=== PATIENT | female | born 1995 ===

== ENCOUNTER 2017-06-21 01:23 | Emergency (ER) | payer MEDICAID ==
[2017-06-21 01:28] VITALS: BMI 31.7
[2017-06-21 01:29] VITALS: BP 146/59; PULSE 67; TEMP 98; O2SAT 99
[2017-06-21 01:48] VITALS: RESP 16
--- NOTE | 2017-06-21 03:38 | ED PDOC ---
HPI: Abdomen Time Seen by Provider: 06/21/17 01:50 Chief Complaint (Nursing): Abdominal Pain Chief Complaint (Provider): Abdominal pain History Per: Patient History/Exam Limitations: no limitations Onset/Duration Of Symptoms: Days (x3) Current Symptoms Are (Timing): Still Present Location Of Pain/Discomfort: Other (lower abdominal) Quality Of Discomfort: "Pain" Associated Symptoms: Nausea, Vomiting (non bloody, non bilious). denies: Urinary Symptoms, Other (vaginal bleeding) Additional Complaint(s): Stacey Medel is a 21 year old female, with no past medical history, who presents to the emergency department complaining of lower abdominal pain associated with nausea and vomiting onset for x3 days. Patient is but is unsure how far along. She reports non bloody, non bilious vomit and normal stools. She denies any vaginal bleeding or urinary symptoms. No further medical complaints. PMD: Dave Rod Abnormal Vaginal Bleeding: No Past Medical History Reviewed: Historical Data, Nursing Documentation, Vital Signs Vital Signs: Last Vital Signs Temp 98.0 F 06/21/17 01:45 Pulse 67 06/21/17 01:45 Resp 16 06/21/17 01:45 BP 146/59 L 06/21/17 01:45 Pulse Ox 99 06/21/17 03:41 - Medical History PMH: No Chronic Diseases - Surgical History Surgical History: No Surg Hx - Family History Family History: States: Unknown Family Hx - Immunization History Hx Influenza Vaccination: No Hx Pneumococcal Vaccination: No - Home Medications Home Medications: Ambulatory Orders Medication Instructions Recorded Albuterol HFA [Ventolin HFA 90 2 puff IH [id number] #1 puff 03/16/17 mcg/actuation (8 g)] Guaifen/Dextromethorphan/PE 1 each PO Q6 #20 tablet 03/16/17 [Mucinex Fast-Max Congest-Cough] Levothyroxine [Synthroid] 50 mcg PO DAILY 03/16/17 predniSONE [Prednisone] 40 mg PO DAILY #8 tab 03/16/17 Doxylamine/Pyridoxine HCl (B6) 1 each PO DAILY #20 tablet. 06/21/17 [David Roland 10-10 mg Tablet] Multivit/Folic Acid/I 1 tab PO DAILY #30 tab 06/21/17 [ Plus] - Allergies Allergies/Adverse Reactions: Allergies Allergy/AdvReac Type Severity Reaction Status Date / Time No Known Allergies Allergy Verified 03/16/17 03:52 Review of Systems ROS Statement: Except As Marked, All Systems Reviewed And Found Negative Gastrointestinal: Positive for: Nausea, Vomiting (non bloody, non bilious), Abdominal Pain (lower) Genitourinary Female: Negative for: Dysuria, Vaginal Bleeding Physical Exam - Reviewed Nursing Documentation Reviewed: Yes Vital Signs Reviewed: Yes - Physical Exam Appears: Positive for: Well, Non-toxic, No Acute Distress Head Exam: Positive for: ATRAUMATIC, NORMAL INSPECTION, NORMOCEPHALIC Skin: Positive for: Normal Color, Warm, Dry Eye Exam: Positive for: Normal appearance Neck: Positive for: Normal, Painless ROM, Supple Cardiovascular/Chest: Positive for: Regular Rate, Rhythm. Negative for: Murmur Respiratory: Positive for: Normal Breath Sounds. Negative for: Accessory Muscle Use, Respiratory Distress Gastrointestinal/Abdominal: Positive for: Normal Exam, Soft. Negative for: Tenderness Back: Positive for: Normal Inspection. Negative for: L CVA Tenderness, R CVA Tenderness Extremity: Positive for: Normal ROM. Negative for: Deformity, Swelling Neurologic/Psych: Positive for: Alert, Oriented - ECG O2 Sat by Pulse Oximetry: 99 (RA) Pulse Ox Interpretation: Normal Medical Decision Making Medical Decision Making: Initial Impression: hyperemesis and round ligament pain Initial Plan: --Beta-HCG, Quantitative --Urine --Urine dipstick --Zofran Inj 4 mg PO --Urinalysis --OB transvaginal [US] --reevaluation 04:17 Transvaginal US FINDINGS: Gestation: Single live intrauterine gestation. heart rate of 118 beats per minute. [place]-rump length of 0.43 cm, correlating with gestational age of 6 weeks 1 day. Uterus/cervix: No subchorionic hemorrhage. No cervical dilatation or effacement. Nabothian cyst. Ovaries: RIGHT ovary: 1.4 x 1.7 x 1.2 cm simple cyst. 2.6 x 2.9 x 2.3 cm heterogeneous but predominantly hyperechoic lesion. LEFT ovary: Probable 1.6 x 1.9 x 1.4 cm complex corpus luteal cyst. No adnexal masses. Free fluid: No significant free fluid. IMPRESSION: 1. Single live intrauterine gestation. 2. Complex RIGHT ovarian lesion, nonspecific. Followup is recommended. 3. Incidental/non-acute findings are described above. 04:30 --Patient feels better. Upon provider evaluation patient is medically stable, and requires no further treatment in the ED at this time. Patient will be discharged home. Counseling was provided and all questions were answered regarding diagnosis and need for follow up with outpatient clinic. There is agreement to discharge plan. Return if symptoms persist or worsen. Scribe Attestation: Documented by Jamie Goss, acting as a scribe for Jacob Asher MD Provider Scribe Attestation: All medical record entries made by the Scribe were at my direction and personally dictated by me. I have reviewed the chart and agree that the record accurately reflects my personal performance of the history, physical exam, medical decision making, and the department course for this patient. I have also personally directed, reviewed, and agree with the discharge instructions and disposition. Disposition - Clinical Impression Clinical Impression: Abdominal pain in - Disposition [facility] Dave Rod MD [Family Provider] - Disposition Time: 04:30 Condition: STABLE Prescriptions: Doxylamine/Pyridoxine HCl (B6) [David Roland 10-10 mg Tablet] 1 each PO DAILY # 20 tablet. Multivit/Folic Acid/I [ Plus] 1 tab PO DAILY #30 tab Instructions: Abdominal Pain in (ED) Forms: [employer] ([place])
[2017-06-21 04:09] LABS: SQUAMOUS EPITHIAL 46 /hpf (0-5); URINE AMORPHOUS SEDIMENT FEW /ul (<OCC); URINE BILIRUBIN NEGATIVE (NEGATIVE); URINE BLOOD NEGATIVE (NEGATIVE); URINE CLARITY TURBID (Clear); URINE COLOR AMBER (YELLOW); URINE GLUCOSE (UA) NEG (Normal); URINE LEUKOCYTE ESTERASE LARGE Leu/uL (Negative); URINE NITRATE NEGATIVE (NEGATIVE); URINE PROTEIN 30 mg/dL (NEGATIVE); URINE UROBILINOGEN 0.2-1.0 mg/dL (0.2-1.0)
[2017-06-21 04:15] LABS: URINE BACTERIA FEW (<OCC); WBC CLUMPS MANY /hpf
--- NOTE | 2017-06-21 04:17 | US ---
EXAM: US , Transvaginal CLINICAL HISTORY: 21 years old, female; Pain; complicated by abdominal or pelvic pain; Lower; First trimester; Gestational age or lmp: 04/28/2017; ; Additional info: Early preg, lower abd pain TECHNIQUE: Real-time transvaginal obstetrical ultrasound of the maternal pelvis and a first trimester with image documentation. Transvaginal imaging was used for better evaluation of the fetus and adnexa. COMPARISON: No relevant prior studies available. FINDINGS: Gestation: Single live intrauterine gestation. heart rate of 118 beats per minute. [place]-rump length of 0.43 cm, correlating with gestational age of 6 weeks 1 day. Uterus/cervix: No subchorionic hemorrhage. No cervical dilatation or effacement. Nabothian cyst. Ovaries: RIGHT ovary: 1.4 x 1.7 x 1.2 cm simple cyst. 2.6 x 2.9 x 2.3 cm heterogeneous but predominantly hyperechoic lesion. LEFT ovary: Probable 1.6 x 1.9 x 1.4 cm complex corpus luteal cyst. No adnexal masses. Free fluid: No significant free fluid. IMPRESSION: 1. Single live intrauterine gestation. 2. Complex RIGHT ovarian lesion, nonspecific. Followup is recommended. 3. Incidental/non-acute findings are described above.
== END 2017-06-21 04:26 | disposition home or self-care (01) ==
LOC: H.ER 01:23
DX: O26.899 Other specified pregnancy related conditions, unspecified trimester (principal); N83.291 Other ovarian cyst, right side

== ENCOUNTER 2018-06-16 00:27 | Inpatient (IN) | payer MEDICAID ==
[2018-06-16 00:27] VITALS: BMI 31.7
[2018-06-16] MEDS ORDERED: Sodium Chloride 0.9% 1,000 ML IV SCH ×2 (02:15→07:15)
[2018-06-16 02:45] LABS: BASO # 0.1 K/uL (0.0-0.2); BASO % 0.4 % (0.0-2.0); EOS # 0.4 K/uL (0.0-0.7); EOS % 1.6 % (0.0-4.0); HEMOGLOBIN 14.5 g/dL (12.0-16.0); LYMPH # 2.1 K/uL (1.0-4.3); LYMPH % 7.9 % (20.0-40.0); MEAN CELL VOLUME 82.9 fl (81.0-99.0); MEAN CORPUSCULAR HEMOGLOBIN 26.2 pg (27.0-31.0); MEAN CORPUSCULAR HGB CONC 31.5 g/dL (33.0-37.0); MEAN PLATELET VOLUME 9.4 fl (7.2-11.7); MONO # 1.7 K/uL (0.0-0.8); MONO % 6.4 % (0.0-10.0); NEUT # 22.2 K/uL (1.8-7.0); NEUT % 83.7 % (50.0-75.0); NRBC % 0.2 % (0.0-0.0); PLATELET COUNT 353 K/uL (130-400); RBC 5.56 Mil/uL (3.80-5.20); RED CELL DISTRIBUTION WIDTH 14.2 % (11.5-14.5); WHITE BLOOD COUNT 26.5 K/uL (4.8-10.8)
--- NOTE | 2018-06-16 02:51 | ED PDOC ---
HPI: Abdomen Time Seen by Provider: 06/16/18 02:01 Chief Complaint (Nursing): GI Problem Chief Complaint (Provider): N/V and diarrhea History Per: Patient Associated Symptoms: Nausea, Vomiting, Diarrhea, Loss Of Appetite. denies: Fever Additional Complaint(s): 22 y/o F with no significant PMH who presents with N/V and diarrhea since 10pm tonight. Pt states that she had slightly decreased appetite today and then began vomiting suddenly at about 10pm. She then began having diarrhea. She has had several bouts and has been unable to drink anything due to vomiting. She c/o diffuse abdominal pain. Mild cough, no sputum. Denies fever, chills, night sweats, dizziness, chest pain or SOB. NO sick contacts. No recent travel outside of the country. Past Medical History Reviewed: Historical Data, Nursing Documentation, Vital Signs Vital Signs: Last Vital Signs Temp 97.5 F L 06/16/18 00:33 Pulse 93 H 06/16/18 00:33 Resp 16 06/16/18 00:33 BP 147/87 06/16/18 00:33 Pulse Ox 100 06/16/18 00:33 - Medical History PMH: No Chronic Diseases - Family History Family History: States: Unknown Family Hx - Immunization History Hx Influenza Vaccination: No Hx Pneumococcal Vaccination: No - Home Medications Home Medications: Ambulatory Orders Medication Instructions Recorded Albuterol HFA [Ventolin HFA 90 2 puff IH [id number] #1 puff 03/16/17 mcg/actuation (8 g)] Guaifen/Dextromethorphan/PE 1 each PO Q6 #20 tablet 03/16/17 [Mucinex Fast-Max Congest-Cough] Levothyroxine [Synthroid] 50 mcg PO DAILY 03/16/17 predniSONE [Prednisone] 40 mg PO DAILY #8 tab 03/16/17 Doxylamine/Pyridoxine HCl (B6) 1 each PO DAILY #20 tablet. 06/21/17 [David Roland 10-10 mg Tablet] Multivit/Folic Acid/I 1 tab PO DAILY #30 tab 06/21/17 [ Plus] - Allergies Allergies/Adverse Reactions: Allergies Allergy/AdvReac Type Severity Reaction Status Date / Time No Known Allergies Allergy Verified 03/16/17 03:52 Review of Systems Constitutional: Negative for: Fever, Sweats Respiratory: Negative for: Cough, Shortness of Breath Gastrointestinal: Positive for: Nausea, Vomiting, Abdominal Pain, Diarrhea Genitourinary Female: Negative for: Dysuria Physical Exam - Reviewed Nursing Documentation Reviewed: Yes Vital Signs Reviewed: Yes - Physical Exam Appears: Positive for: Uncomfortable (+ rigors) Head Exam: Positive for: ATRAUMATIC Skin: Positive for: Normal Color Eye Exam: Positive for: Normal appearance ENT: Positive for: Normal ENT Inspection Neck: Positive for: Normal Cardiovascular/Chest: Positive for: Regular Rate, Rhythm Respiratory: Positive for: Normal Breath Sounds Gastrointestinal/Abdominal: Positive for: Normal Exam Back: Positive for: Normal Inspection Lymphatic: Positive for: Normal Exam Neurologic/Psych: Positive for: Alert, Oriented - Laboratory Results Result Diagrams: 06/16/18 02:40 06/16/18 02:40 - ECG O2 Sat by Pulse Oximetry: 100 Medical Decision Making Medical Decision Making: CBC, CMP NS 1L IV Zofran 4mg IV x 1 4:30am: WBC 26K, 11 Bands, K = 3.3. Potassium 20meq PO x 1 given. VBG lactate, CT abd/pelvis w/ PO and IV contrast ordered, U/A and urine culture, blood cultures ordered. Lactate 2.6. Vanc/Zosyn ordered. Awaiting CT scan results and admission for sepsis. Patient endorsed to Dr. Varghese at 7:15am pending CT scan results and admission. Repeat lactate to be drawn at 9:30am. Disposition - Clinical Impression Clinical Impression: Sepsis - Patient ED Disposition Is Patient to be Admitted: Transfer of Care Counseled Patient/Family Regarding: Studies Performed, Diagnosis, Need For Followup - Disposition Disposition: Transfer of Care Disposition Time: 07:15 Condition: GUARDED Forms: [employer] ([place])
[2018-06-16 02:56] LABS: ALB/GLOB RATIO 1.3 (1.0-2.1); ALBUMIN 5.5 g/dL (3.5-5.0); ALT/SGPT 15 U/L (9-52); AST/SGOT 24 U/L (14-36); BLOOD UREA NITROGEN 22 mg/dl (7-17); CALCIUM 11.1 mg/dL (8.4-10.2); GFR NON-AFRICAN AMERICAN > 60
[2018-06-16 03:43] LABS: EOSINOPHIL 1 % (0-7); METAMYELOCYTE 1 % (0-0); NEUTROPHIL 75 % (42-75); TOTAL CELLS COUNTED 100
[2018-06-16 03:44] LABS: LYMPHOCYTE 9 % (20-50); MONOCYTE 3 % (0-10); PLATELET ESTIMATE NORMAL (NORMAL)
[2018-06-16 03:45] LABS: BANDS 11 % (0-2)
[2018-06-16] MEDS ORDERED: Potassium Chloride 20 mEq ER Tab PO ONE ×2 (04:44→05:43)
[2018-06-16] MEDS ORDERED: Iohexol 240 (50 ml) PO STA (04:46)
[2018-06-16] MEDS ORDERED: Potassium CL 10 MEQ/50 ML 50 ML IVPB SCH (05:00)
[2018-06-16] MEDS ORDERED: Iohexol 240 (50 ml) ONE (05:43)
[2018-06-16 06:08] LABS: SQUAMOUS EPITHIAL 5 /hpf (0-5); URINE BACTERIA OCC (<OCC); URINE BILIRUBIN NEGATIVE (NEGATIVE); URINE BLOOD NEGATIVE (NEGATIVE); URINE CLARITY CLOUDY (Clear); URINE COLOR YELLOW (YELLOW); URINE GLUCOSE (UA) NEG (NEGATIVE); URINE LEUKOCYTE ESTERASE SMALL Leu/uL (Negative); URINE PROTEIN 30 mg/dL (NEGATIVE); URINE UROBILINOGEN 0.2-1.0 mg/dL (0.2-1.0)
[2018-06-16 06:37] LABS: VENOUS BLOOD GAS BASE EXCESS -1.7 mmol/L (0.0-2.0); VENOUS BLOOD GAS PCO2 38 mmHg (40-60); VENOUS BLOOD GAS PO2 56 mm/Hg (30-55); VENOUS BLOOD PH 7.39 (7.32-7.43)
[2018-06-16] MEDS ORDERED: Iohexol 300 100 ML IJ ONE (07:19)
[2018-06-16] MEDS ORDERED: Piperacillin/Tazobact 4.5 GM in Sodium Chloride 0.9% 100 ML IVPB STA (07:22)
[2018-06-16] MEDS ORDERED: Vancomycin 1 g Inj ONE (07:49)
--- NOTE | 2018-06-16 10:07 | RAD ---
Date of service: 06/16/2018 HISTORY: sepsis COMPARISON: No prior. TECHNIQUE: Chest PA and lateral FINDINGS: LUNGS: No active pulmonary disease. PLEURA: No significant pleural effusion identified. No pneumothorax apparent. CARDIOVASCULAR: No aortic atherosclerotic calcification present. Normal cardiac size. No pulmonary vascular congestion. OSSEOUS STRUCTURES: No significant abnormalities. VISUALIZED UPPER ABDOMEN: Normal. OTHER FINDINGS: None. IMPRESSION: No active disease.
--- NOTE | 2018-06-16 11:12 | CT ---
Date of service: 06/16/2018 PROCEDURE: CT Abdomen and Pelvis with contrast HISTORY: n/v, diarrhea, elevated white count COMPARISON: None. TECHNIQUE: Contrast dose: 95 mL Omnipaque 300 Radiation dose: Total exam DLP = 566.12 mGy-cm. This CT exam was performed using one or more of the following dose reduction techniques: Automated exposure control, adjustment of the mA and/or kV according to patient size, and/or use of iterative reconstruction technique. FINDINGS: LOWER THORAX: Unremarkable. LIVER: Unremarkable. No gross lesion or ductal dilatation. GALLBLADDER AND BILE DUCTS: Unremarkable. PANCREAS: Unremarkable. No gross lesion or ductal dilatation. SPLEEN: Unremarkable. ADRENALS: Unremarkable. No mass. KIDNEYS AND URETERS: Unremarkable. No hydronephrosis. No solid mass. VASCULATURE: Unremarkable. No aortic aneurysm. No aortic atherosclerotic calcification or mural plaque present. BOWEL: Little oral contrast is in the colon. There is a large amount of fluid in the colon. The does not appear particularly distended. There is no marked mural enhancement throughout the colon appreciate on this exam There is more even oral contrast administration throughout the nondistended small bowel.. No small-bowel obstruction. No gross smaller large mural thickening. APPENDIX: What appears to be the appendix appears top-normal in caliber. Correlation here is needed. PERITONEUM: . No free fluid. No free air. LYMPH NODES: Unremarkable. No enlarged lymph nodes. BLADDER: Moderately distended and otherwise unremarkable. REPRODUCTIVE: The endometrial cavity is a prominent this could be physiologic. This also coalescent hyperdensity perhaps relating to coalescent tiny nabothian cysts and/or a cervicitis. A 2.3 cm fatty density within the right adnexa compatible with a dermoid is noted. Each adnexa shows additional areas of relative hypodensity this is nonspecific and may relate to ovarian follicular or other cystic changes. No thick-walled enhancing abscesses are seen. However micro abscesses are not excluded based on this appearance and clinical correlation and follow-up is needed. BONES: No acute fracture. OTHER FINDINGS: Although the stomach wall show some areas of mural thickening-the stomach is not particularly distended to optimally assess this appearance findings are nonspecific. IMPRESSION: Findings compatible with a right ovarian dermoid. Additional bilateral ovarian follicular cysts are 1 consideration. Given the concern for infection, concomitant small bilateral ovarian axes cannot be entirely excluded this is not from an imaging point of view strongly suggested. No thick adnexal enhancement suggested. Consider pelvic ultrasound to follow-up. Coalescing nabothian cysts at and/or cervicitis. No small or large bowel obstruction. There is moderate amount of fluid in the and throughout the colon and be seen with a history of diarrhea. No marked colonic mural enhancement to suggest and a imaging significant appearing colitis. Although this is not excluded. Appendix is top normal in caliber. Also nonspecific. Clinical follow-up advised.
--- NOTE | 2018-06-16 11:55 | ED PDOC ---
- Laboratory Results Result Diagrams: 06/16/18 02:40 06/16/18 02:40 - ECG O2 Sat by Pulse Oximetry: 100 Medical Decision Making Medical Decision Making: WBC elevated 26.5 with 11 bands. CXR read as neg. CT abd/pelvis does not appear to show source for elevated WBC. Urine does not appear to be source. Pt started on IV vanco/zosyn as pt potentially septic with lactate elevated at 2.3. 2 L NS given with repeat lactate pending. Pt is afebrile, not hypotensive. Discussed with Dr. Horton. [facility] and continue to investigate source for potential sepsis Disposition - Clinical Impression Clinical Impression: Sepsis - POA Present On Arrival: None - Disposition Disposition: Admitted as In-Patient Disposition Time: 11:10 Condition: GUARDED Forms: [employer] ([place]ian)
--- NOTE | 2018-06-16 12:56 | US ---
Date of service: 06/16/2018 HISTORY: ovarian cyst COMPARISON: None available. TECHNIQUE: Transvaginal pelvic ultrasound was performed. FINDINGS: UTERUS: Measures 8.0 x 4.8 x 3.8 cm. Normal in size and appearance. No fibroid or other mass lesion seen. ENDOMETRIUM: Measures 10 mm in diameter. Normal in appearance. CERVIX: There is a subcentimeter nabothian cyst in the posterior wall. There is trace fluid in the endocervical canal. RIGHT OVARY: Measures 3.1 x 2.7 x 2.2 cm. There is a 2.8 x 2.9 x 2.3 cm complex heterogeneous predominantly hyperechoic mass in the right adnexa which measures 2.8 x 2.9 x 2.3 cm. No central flow on color Doppler imaging. Normal flow. There is a 1.3 x 1.3 x 1.1 cm simple cyst. LEFT OVARY: Measures 3.9 x 2.7 x 1.7 cm. No solid mass. Normal flow. FREE FLUID: No significant free fluid noted. OTHER FINDINGS: None. IMPRESSION: 1. 2.8 x 2.9 x 2.3 cm heterogeneous mass in the right adnexa not completely characterized on this examination and could represent an exophytic ovarian dermoid. Correlation with CT scan of the abdomen and pelvis with oral and intravenous contrast is recommended for further evaluation. No evidence for torsion. 2. 1.3 x 1.3 x 1.1 cm cyst/dominant follicle in the right ovary.
--- NOTE | 2018-06-16 13:39 | CP.PCM.HP ---
<Sultan Carmen - Last Filed: 06/16/18 14:48> History of Present Illness - History of Present Illness History of Present Illness: CC: Nausea, vomiting, diarrhea and abdominal pain HPI: 22 year old female with PMHx right ovarian cyst presents to [facility] w/ complaints of sudden onset of multiple episodes (7-8 x) NBNB emesis and non- bloody watery diarrhea since 10 pm last night associated with diffuse abdominal cramps and chills. Patient reports abdominal pain as cramping in nature, 7/10 when it started. States abdominal pain is resolved now. Reports throat is sore from vomiting. Denies any dysuria, vaginal discharge, cough,or URI symptoms. Denies any joint aches or rash. Denies eating any unusual food (patient had soup yesterday). Denies any recent trip outside of the country or denies any sick contact. Denies any recent abx use. Patient is sexually active with one male partner and uses condom. Denies any hx STI in the past. In ED, patient CBC shows WBC 26.5 w/ band neutrophil of 11. VBG shows lactate of 2.3. CT A/P and TV US shows right ovarian dermoid and nonspecific findings. Patient meets the criteria for SIRS and admitted for evaluation of potential sepsis. ROS: all 12 systems reviewed and negative except as mentioned above. PMD: [facility] PMHx: right ovarian cyst diagnosed 2 years ago. 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 Denies any hx STI. LMP 05/24/18. Social hx: Smokes 2-3 cigarettes daily. Drinks EtOH socially. Denies any drugs uses. Family hx: Denies Allergies: NKDA Medications: None Present on Admission - Present on Admission Any Indicators Present on Admission: No Review of Systems - Review of Systems All systems: reviewed and no additional remarkable complaints except Past Patient History - Past Social History Smoking Status: Light Smoker < 10 Cigarettes Daily - PSYCHIATRIC Hx Substance Use: No - SURGICAL HISTORY Hx Dilation and Curettage: Yes - ANESTHESIA Hx Anesthesia: Yes Hx Anesthesia Reactions: No Meds Allergies/Adverse Reactions: Allergies Allergy/AdvReac Type Severity Reaction Status Date / Time No Known Allergies Allergy Verified 03/16/17 03:52 Physical Exam - Constitutional Appears: Non-toxic, Toxic - Head Exam Head Exam: NORMAL INSPECTION - Eye Exam Eye Exam: Normal appearance - ENT Exam ENT Exam: Mucous Membranes Moist, Normal External Ear Exam, Normal Oropharynx - Neck Exam Neck exam: Positive for: Normal Inspection. Negative for: Lymphadenopathy, Meningismus - Respiratory Exam Respiratory Exam: Clear to Auscultation Bilateral, NORMAL BREATHING PATTERN. absent: Rhonchi, Wheezes, Respiratory Distress - Cardiovascular Exam Cardiovascular Exam: REGULAR RHYTHM, RRR, +S1, +S2 - GI/Abdominal Exam GI & Abdominal Exam: Normal Bowel Sounds, Soft. absent: Guarding, Rigid, Tender ness - Extremities Exam Extremities exam: Positive for: normal capillary refill, normal inspection. Negative for: calf tenderness, pedal edema - Back Exam Back exam: absent: CVA tenderness (L), CVA tenderness (R) - Neurological Exam Neurological exam: Alert, Oriented x3 - Psychiatric Exam Psychiatric exam: Normal Affect, Normal Mood - Skin Skin Exam: Normal Color, Warm Results - Vital Signs Recent Vital Signs: Last Vital Signs Temp 98.4 F 06/16/18 07:22 Pulse 93 H 06/16/18 07:22 Resp 18 06/16/18 07:22 BP 129/72 06/16/18 07:22 Pulse Ox 100 06/16/18 11:10 - Labs Result Diagrams: 06/16/18 02:40 06/16/18 02:40 Labs: Laboratory Results - last 24 hr 06/16/18 06/16/18 06/16/18 02:40 02:40 04:30 WBC 26.5 H RBC 5.56 H Hgb 14.5 Hct 46.1 MCV 82.9 MCH 26.2 L MCHC 31.5 L RDW 14.2 Plt Count 353 MPV 9.4 Neut % (Auto) 83.7 H Lymph % (Auto) 7.9 L [place] % (Auto) 6.4 Eos % (Auto) 1.6 Baso % (Auto) 0.4 Neut # (Auto) 22.2 H Lymph # (Auto) 2.1 [place] # (Auto) 1.7 H Eos # (Auto) 0.4 Baso # (Auto) 0.1 Neutrophils % (Manual) 75 Band Neutrophils % 11 H* Lymphocytes % (Manual) 9 L Monocytes % (Manual) 3 Eosinophils % (Manual) 1 Metamyelocytes % 1 H Platelet Estimate Normal pO2 VBG pH VBG pCO2 VBG HCO3 VBG Total CO2 VBG O2 Sat (Calc) VBG Base Excess VBG Potassium Glucose Lactate FiO2 Sodium 140 Potassium 3.3 L Chloride 101 Carbon Dioxide 21 L Anion Gap 21 H BUN 22 H Creatinine 0.9 Est GFR ( Amer) > 60 Est GFR (Non-Af Amer) > 60 Random Glucose 189 H Calcium 11.1 H Total Bilirubin 0.3 AST 24 ALT 15 Alkaline Phosphatase 101 Total Protein 9.6 H Albumin 5.5 H Globulin 4.1 H Albumin/Globulin Ratio 1.3 Venous Blood Potassium Urine Color Yellow Urine Clarity Cloudy Urine pH 5.0 Ur Specific [place] 1.031 H Urine Protein 30 Urine Glucose (UA) Neg Urine Ketones 20 Urine Blood Negative Urine Nitrate Negative Urine Bilirubin Negative Urine Urobilinogen 0.2-1.0 Ur Leukocyte Esterase Small Urine RBC (Auto) 1 Urine Microscopic WBC 5 Ur Squamous Epith Cells 5 Urine Bacteria Occ H 06/16/18 06:34 WBC RBC Hgb Hct MCV MCH MCHC RDW Plt Count MPV Neut % (Auto) Lymph % (Auto) [place] % (Auto) Eos % (Auto) Baso % (Auto) Neut # (Auto) Lymph # (Auto) [place] # (Auto) Eos # (Auto) Baso # (Auto) Neutrophils % (Manual) Band Neutrophils % Lymphocytes % (Manual) Monocytes % (Manual) Eosinophils % (Manual) Metamyelocytes % Platelet Estimate pO2 56 H VBG pH 7.39 VBG pCO2 38 L VBG HCO3 23.4 VBG Total CO2 24.2 VBG O2 Sat (Calc) 94.5 H VBG Base Excess -1.7 L VBG Potassium 3.5 L Glucose 110 H Lactate 2.3 H FiO2 21.0 Sodium 137.0 Potassium Chloride 106.0 Carbon Dioxide Anion Gap BUN Creatinine Est GFR ( Amer) Est GFR (Non-Af Amer) Random Glucose Calcium Total Bilirubin AST ALT Alkaline Phosphatase Total Protein Albumin Globulin Albumin/Globulin Ratio Venous Blood Potassium 3.5 L Urine Color Urine Clarity Urine pH Ur Specific [place] Urine Protein Urine Glucose (UA) Urine Ketones Urine Blood Urine Nitrate Urine Bilirubin Urine Urobilinogen Ur Leukocyte Esterase Urine RBC (Auto) Urine Microscopic WBC Ur Squamous Epith Cells Urine Bacteria Assessment & Plan - Assessment and Plan (Free Text) Assessment: 22 year old female with PMHx right ovarian cyst presents to [facility] w/ complaints of sudden onset of multiple episodes (7-8 x) NBNB emesis and non-bloody watery diarrhea since 10 pm last night associated with diffuse abdominal cramps and chills. . In ED, patient CBC shows WBC 26.5 w/ band neutrophil of 11. VBG shows lactate of 2.3. CT A/P and TV US shows right ovarian dermoid and nonspecific findings. Patient meets the criteria for SIRS and admitted for evaluation of potential sepsis. Plan: Systemic inflammatory response syndrome with elevated lactate, r/o sepsis -Afebrile, Stable vitals -Wbc 26.5 with bandemia -Lactate 2.3 -CT A/P: IMPRESSION:Findings compatible with a right ovarian dermoid. Additional bilateral ovarian follicular cysts are 1 consideration. Given the concern for infection, concomitant small bilateral ovarian axes cannot be entirely excluded this is not from an imaging point of view strongly suggested. No thick adnexal enhancement suggested. Consider pelvic ultrasound to follow- up. Coalescing nabothian cysts at and/or cervicitis. -s/p 2 L IVFs and 1 gm Vancomycin and 4.5 gm of Zosyn -c/w Zosyn 3.375 gm IVPB q6hr -Start IVF D5 NS with 20 KCl -ID consult, Dr. Padilla, recommendation appreciated. -f/u urine cx and blood cx -f/u stool culture, c diff toxins and stool O&P -f/u AM labs Hypokalemia: -K+ 3.3 -s/p KCl 20 meq -Start D5 NS with 20 KCl -F/U AM labs Hypercalcemia: -likely secondary to dehydration -Ca 11.1 -s/p 2 L NS in ER -c/w IVFs Hx Right Ovarian Dermoid cyst: -TV US: IMPRESSION: 1. 2.8 x 2.9 x 2.3 cm heterogeneous mass in the right adnexa not completely characterized on this examination and could represent an exophytic ovarian dermoid. Correlation with CT scan of the abdomen and pelvis with oral and intravenous contrast is recommended for further evaluation. No evidence for torsion. 2. 1.3 x 1.3 x 1.1 cm cyst/dominant follicle in the right ovary. -F/U outpatient Prophylaxis: -DVT: Lovenox 40 mg SC -GI: Pantoprazole 40 mg IVP Code Status: -Full code Plan discussed with Dr. Clifford Morales, pgy-2 <Surinder Horton K - Last Filed: 06/18/18 13:26> Results - Vital Signs Recent Vital Signs: Last Vital Signs Temp 97.9 F 06/18/18 12:42 Pulse 62 06/18/18 12:42 Resp 20 06/18/18 12:42 BP 121/69 06/18/18 12:42 Pulse Ox 99 06/18/18 12:42 - Labs Result Diagrams: 06/18/18 04:30 06/17/18 04:10 Labs: Laboratory Results - last 24 hr 06/18/18 06/18/18 06/18/18 04:30 04:30 04:30 WBC 11.9 H RBC 4.68 Hgb 12.3 Hct 39.1 MCV 83.6 MCH 26.2 L MCHC 31.4 L RDW 14.6 H Plt Count 229 Free T4 1.14 Total T3 1.31 L TSH 3rd Generation 17.70 H Assessment & Plan - Assessment and Plan (Free Text) Assessment: Patient was personally seen and examined by me in rounds with residents. Available labs and diagnostic data reviewed. Case, Patient's condition and management plan discussed with residents in rounds. Agree with resident's progress note. Plan: As ordered.
--- NOTE | 2018-06-16 16:03 | CP.PCM.PN ---
Subjective - Date & Time of Evaluation Date of Evaluation: 06/16/18 Time of Evaluation: 09:00 - Subjective Subjective: discussed with resident empiric rx in progress Objective - Vital Signs/Intake and Output Vital Signs (last 24 hours): Temp Pulse Resp BP Pulse Ox 98.4 F 93 H 18 129/72 100 06/16/18 07:22 06/16/18 07:22 06/16/18 07:22 06/16/18 07:22 06/16/18 11:10 - Medications Medications: Current Medications Enoxaparin Sodium (Lovenox) 40 mg SC DAILY [facility]; Protocol Potassium Chloride/Dextrose/Sod Cl (Potassium Chl 20 Meq In D5-1/2ns) 1,000 mls @ 125 mls/hr IV .Q8H [facility] Piperacillin Sod/Tazobactam (Sod 3.375 gm/ Sodium Chloride) 100 mls @ 100 mls/hr IVPB Q6 [facility]; Protocol Ondansetron HCl (Zofran Inj) 4 mg IVP Q6 PRN PRN Reason: Nausea/Vomiting Pantoprazole Sodium (Protonix Inj) 40 mg IVP DAILY [facility] - Labs Labs: 06/16/18 02:40 06/16/18 02:40
[2018-06-16] MEDS ORDERED: Piperacillin/Tazobact 3.375 gm Inj IVPB ONE (16:14)
[2018-06-16] MEDS: Piperacillin/Tazobact 3.375 GM in Sodium Chloride 0.9% 100 ML IVPB SCH ×2 (16:44→22:55)
[2018-06-16] MEDS: Potassium Ch 20mEq in D5-1/2NS 1,000 ML IV SCH (22:54)
[2018-06-17] MEDS: Piperacillin/Tazobact 3.375 GM in Sodium Chloride 0.9% 100 ML IVPB SCH ×4 (04:05→21:25)
[2018-06-17 06:39] LABS: BASO % 0.2 % (0.0-2.0); EOS # 0.6 K/uL (0.0-0.7); EOS % 5.7 % (0.0-4.0); HEMOGLOBIN 11.3 g/dL (12.0-16.0); LYMPH # 4.1 K/uL (1.0-4.3); LYMPH % 38.7 % (20.0-40.0); MEAN CELL VOLUME 82.3 fl (81.0-99.0); MEAN CORPUSCULAR HEMOGLOBIN 26.7 pg (27.0-31.0); MEAN CORPUSCULAR HGB CONC 32.5 g/dL (33.0-37.0); MEAN PLATELET VOLUME 9.7 fl (7.2-11.7); MONO # 0.6 K/uL (0.0-0.8); MONO % 5.7 % (0.0-10.0); NEUT # 5.2 K/uL (1.8-7.0); NEUT % 49.7 % (50.0-75.0); NRBC % 0.2 % (0.0-0.0); RBC 4.23 Mil/uL (3.80-5.20); RED CELL DISTRIBUTION WIDTH 14.4 % (11.5-14.5); WHITE BLOOD COUNT 10.5 K/uL (4.8-10.8)
[2018-06-17 07:23] LABS: ALB/GLOB RATIO 1.2 (1.0-2.1); ALBUMIN 3.5 g/dL (3.5-5.0); ALT/SGPT 24 U/L (9-52); AST/SGOT 25 U/L (14-36); BLOOD UREA NITROGEN 12 mg/dl (7-17); GFR NON-AFRICAN AMERICAN > 60
[2018-06-17] MEDS: Potassium Ch 20mEq in D5-1/2NS 1,000 ML IV SCH ×2 (07:30→14:46)
[2018-06-17] MEDS: Enoxaparin 40 mg Syringe SC SCH (08:49)
--- NOTE | 2018-06-17 09:13 | CP.PCM.PN ---
<Sultan Carmen - Last Filed: 06/17/18 10:40> Subjective - Date & Time of Evaluation Date of Evaluation: 06/17/18 Time of Evaluation: 08:00 - Subjective Subjective: Patient seen and examined with Dr. Horton this morning. Reports she is feeling better. Had 4 episodes diarrhea since yesterday. Denies any abdominal pain, nausea, vomiting. fever or chills. No new complaints. Objective - Vital Signs/Intake and Output Vital Signs (last 24 hours): Temp Pulse Resp BP Pulse Ox 97.8 F 75 18 120/72 99 06/17/18 08:00 06/17/18 08:00 06/17/18 08:00 06/17/18 08:00 06/17/18 08:00 - Medications Medications: Current Medications Enoxaparin Sodium (Lovenox) 40 mg SC DAILY [facility]; Protocol Last Admin: 06/17/18 08:49 Dose: 40 mg Potassium Chloride/Dextrose/Sod Cl (Potassium Chl 20 Meq In D5-1/2ns) 1,000 mls @ 125 mls/hr IV .Q8H [facility] Last Admin: 06/17/18 07:30 Dose: 125 mls/hr Piperacillin Sod/Tazobactam (Sod 3.375 gm/ Sodium Chloride) 100 mls @ 100 mls/hr IVPB Q6 [facility]; Protocol Last Admin: 06/17/18 04:05 Dose: 100 mls/hr Ondansetron HCl (Zofran Inj) 4 mg IVP Q6 PRN PRN Reason: Nausea/Vomiting Pantoprazole Sodium (Protonix Inj) 40 mg IVP DAILY [facility] Last Admin: 06/17/18 08:48 Dose: 40 mg - Labs Labs: 06/17/18 04:10 06/17/18 04:10 - Constitutional Appears: Non-toxic, No Acute Distress - Head Exam Head Exam: NORMAL INSPECTION - Eye Exam Eye Exam: Normal appearance - ENT Exam ENT Exam: Mucous Membranes Moist - Respiratory Exam Respiratory Exam: Clear to Ausculation Bilateral, NORMAL BREATHING PATTERN. absent: Rhonchi, Wheezes - Cardiovascular Exam Cardiovascular Exam: REGULAR RHYTHM, +S1, +S2 - GI/Abdominal Exam GI & Abdominal Exam: Soft, Normal Bowel Sounds. absent: Guarding, Tenderness, Rebound - Extremities Exam Extremities Exam: Normal Inspection. absent: Calf Tenderness - Neurological Exam Neurological Exam: Alert, Awake, Normal Gait - Psychiatric Exam Psychiatric exam: Normal Affect, Normal Mood - Skin Skin Exam: Normal Color, Warm Assessment and Plan - Assessment and Plan (Free Text) Assessment: Plan: Systemic inflammatory response syndrome, r/o sepsis -Afebrile, Stable vitals -Wbc 10.5 this morning -Lactate 1.0 -c/w Zosyn 3.375 gm IVPB q6hr -c/w IVF D5 NS with 20 KCl -ID consult, Dr. Padilla, recommendation appreciated. -Advance diet as tolerated. -f/u urine cx and blood cx: no growth after 24 hours. -influeza test neg. -f/u enterovirus RNA, stool culture, c diff toxins and stool O&P -f/u AM labs Hypokalemia (resolved) -K+ 4.1 l -F/U AM labs Hypercalcemia (Resolved) -Ca 9.0 -f/u AM labs Hx Right Ovarian Dermoid cyst: -TV US: IMPRESSION: 1. 2.8 x 2.9 x 2.3 cm heterogeneous mass in the right adnexa not completely characterized on this examination and could represent an exophytic ovarian dermoid. Correlation with CT scan of the abdomen and pelvis with oral and intravenous contrast is recommended for further evaluation. No evidence for torsion. 2. 1.3 x 1.3 x 1.1 cm cyst/dominant follicle in the right ovary. -F/U outpatient Prophylaxis: -DVT: Lovenox 40 mg SC -GI: Pantoprazole 40 mg IVP Code Status: -Full code Patient seen, examined and plan discussed with Dr. Clifford Morales, pgy-2 <Surinder Horton - Last Filed: 06/18/18 13:25> Objective - Vital Signs/Intake and Output Vital Signs (last 24 hours): Temp Pulse Resp BP Pulse Ox 97.9 F 62 20 121/69 99 06/18/18 12:42 06/18/18 12:42 06/18/18 12:42 06/18/18 12:42 06/18/18 12:42 - Medications Medications: Current Medications Enoxaparin Sodium (Lovenox) 40 mg SC DAILY [facility]; Protocol Last Admin: 06/18/18 09:11 Dose: 40 mg Piperacillin Sod/Tazobactam (Sod 3.375 gm/ Sodium Chloride) 100 mls @ 100 mls/hr IVPB Q6 [facility]; Protocol Last Admin: 06/18/18 09:15 Dose: 100 mls/hr Levothyroxine Sodium (Synthroid) 25 mcg PO DAILY@0630 [facility] Ondansetron HCl (Zofran Inj) 4 mg IVP Q6 PRN PRN Reason: Nausea/Vomiting Pantoprazole Sodium (Protonix Inj) 40 mg IVP DAILY [facility] Last Admin: 06/18/18 09:11 Dose: 40 mg - Labs Labs: 06/18/18 04:30 06/17/18 04:10 Assessment and Plan - Assessment and Plan (Free Text) Assessment: Patient was personally seen and examined by me in rounds with residents. Available labs and diagnostic data reviewed. Case, Patient's condition and management plan discussed with residents in rounds. Agree with resident's progress note. Plan: As ordered.
[2018-06-17 16:11] VITALS: O2SAT 99
--- NOTE | 2018-06-17 19:11 | CP.PCM.CON ---
History of Present Illness - History of Present Illness History of Present Illness: 22 year old female with PMHx right ovarian cyst presents to [facility] w/ complaints of sudden onset of multiple episodes (7-8 x) NBNB emesis and non-bloody watery diarrhea since 10 pm last night associated with diffuse abdominal cramps and chills. Denies any dysuria, vaginal discharge, cough,or URI symptoms. Denies any joint aches or rash. Denies eating any unusual food (patient had soup yesterday). Denies any recent trip outside of the country or denies any sick contact. Denies any recent abx use. Patient is sexually active with one male partner and uses condom. Denies any hx STI in the past. In ED, patient CBC shows WBC 26.5 w/ band neutrophil of 11. VBG shows lactate of 2.3. CT A/P and TV US shows right ovarian dermoid and nonspecific findings. Patient meets the criteria for SIRS and admitted for evaluation of potential sepsis. ROS: all 12 systems reviewed and negative except as mentioned above. PMD: [facility] PMHx: right ovarian cyst diagnosed 2 years ago. 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 Denies any hx STI. LMP 05/24/18. Social hx: Smokes 2-3 cigarettes daily. Drinks EtOH socially. Denies any drugs uses. Family hx: Denies Allergies: NKDA Medications: None Present on Admission - Present on Admission Any Indicators Present on Admission: No Review of Systems - Review of Systems All systems: reviewed and no additional remarkable complaints except Past Patient History - Past Medical History & Family History Past Medical History?: No - Past Social History Smoking Status: Never Smoked - CARDIAC Hx Cardiac Disorders: No - PULMONARY Hx Respiratory Disorders: No - NEUROLOGICAL Hx Neurological Disorder: No - HEENT Hx HEENT Problems: No - RENAL Hx Chronic Kidney Disease: No - ENDOCRINE/METABOLIC Hx Endocrine Disorders: No - HEMATOLOGICAL/ONCOLOGICAL Hx Blood Disorders: No Hx AIDS: No Hx Human Immunodeficiency Virus (HIV): No - INTEGUMENTARY Hx Dermatological Problems: No - MUSCULOSKELETAL/RHEUMATOLOGICAL Hx Musculoskeletal Disorders: No Hx Falls: No - GASTROINTESTINAL Hx Gastrointestinal Disorders: No - GENITOURINARY/GYNECOLOGICAL Hx Genitourinary Disorders: No - PSYCHIATRIC Hx Psychophysiologic Disorder: No Hx Substance Use: No - SURGICAL HISTORY Hx Surgeries: Yes Hx Dilation and Curettage: Yes - ANESTHESIA Hx Anesthesia: Yes Hx Anesthesia Reactions: No Hx Malignant Hyperthermia: No Has any member of the family had a problem w/ anesthesia?: No Meds Allergies/Adverse Reactions: Allergies Allergy/AdvReac Type Severity Reaction Status Date / Time No Known Allergies Allergy Verified 03/16/17 03:52 - Medications Medications: Current Medications Enoxaparin Sodium (Lovenox) 40 mg SC DAILY [facility]; Protocol Last Admin: 06/17/18 08:49 Dose: 40 mg Piperacillin Sod/Tazobactam (Sod 3.375 gm/ Sodium Chloride) 100 mls @ 100 mls/hr IVPB Q6 [facility]; Protocol Last Admin: 06/17/18 16:34 Dose: 100 mls/hr Ondansetron HCl (Zofran Inj) 4 mg IVP Q6 PRN PRN Reason: Nausea/Vomiting Pantoprazole Sodium (Protonix Inj) 40 mg IVP DAILY [facility] Last Admin: 06/17/18 08:48 Dose: 40 mg Physical Exam - Constitutional Appears: No Acute Distress - Head Exam Head Exam: ATRAUMATIC, NORMOCEPHALIC - Eye Exam Eye Exam: absent: Scleral icterus - ENT Exam ENT Exam: Mucous Membranes Dry - Neck Exam Neck exam: Negative for: Lymphadenopathy - Respiratory Exam Respiratory Exam: Decreased Breath Sounds - Cardiovascular Exam Cardiovascular Exam: REGULAR RHYTHM, +S1, +S2 - GI/Abdominal Exam GI & Abdominal Exam: Diminished Bowel Sounds, Soft. absent: Tenderness - Rectal Exam Rectal Exam: Deferred - Exam Exam: NORMAL INSPECTION - Extremities Exam Extremities exam: Negative for: pedal edema - Back Exam Back exam: absent: CVA tenderness (L), CVA tenderness (R) - Neurological Exam Neurological exam: Alert, CN II-XII Intact, Oriented x3, Reflexes Normal - Psychiatric Exam Psychiatric exam: Normal Mood - Skin Skin Exam: Dry Results - Vital Signs Recent Vital Signs: Last Vital Signs Temp 98.2 F 06/17/18 16:11 Pulse 75 06/17/18 16:11 Resp 16 06/17/18 16:11 BP 124/77 06/17/18 16:11 Pulse Ox 99 06/17/18 16:11 - Labs Result Diagrams: 06/17/18 04:10 06/17/18 04:10 Labs: Laboratory Results - last 24 hr 06/17/18 06/17/18 04:10 04:10 WBC 10.5 D RBC 4.23 Hgb 11.3 L D Hct 34.8 MCV 82.3 MCH 26.7 L MCHC 32.5 L RDW 14.4 Plt Count 197 D MPV 9.7 Neut % (Auto) 49.7 L Lymph % (Auto) 38.7 [place] % (Auto) 5.7 Eos % (Auto) 5.7 H Baso % (Auto) 0.2 Neut # (Auto) 5.2 Lymph # (Auto) 4.1 [place] # (Auto) 0.6 Eos # (Auto) 0.6 Baso # (Auto) 0.0 Sodium 139 Potassium 4.1 Chloride 107 Carbon Dioxide 25 Anion Gap 11 BUN 12 Creatinine 0.8 Est GFR ( Amer) > 60 Est GFR (Non-Af Amer) > 60 Random Glucose 101 Calcium 9.0 Total Bilirubin 0.4 AST 25 ALT 24 Alkaline Phosphatase 53 Total Protein 6.5 Albumin 3.5 D Globulin 3.0 Albumin/Globulin Ratio 1.2 Vitamin B12 278 TSH 3rd Generation 14.50 H Assessment & Plan (1) Sepsis Status: Acute (2) UTI (urinary tract infection) Status: Acute - Assessment and Plan (Free Text) Assessment: possible gastroenteritis ( viral ?) vs UTI with sepsis await final cultures cont IV then PO rx for 7 days unless blood c/s +
[2018-06-18] MEDS: Piperacillin/Tazobact 3.375 GM in Sodium Chloride 0.9% 100 ML IVPB SCH ×2 (04:33→09:15)
[2018-06-18 05:46] LABS: HEMOGLOBIN 12.3 g/dL (12.0-16.0); MEAN CELL VOLUME 83.6 fl (81.0-99.0); MEAN CORPUSCULAR HEMOGLOBIN 26.2 pg (27.0-31.0); MEAN CORPUSCULAR HGB CONC 31.4 g/dL (33.0-37.0); RBC 4.68 Mil/uL (3.80-5.20); RED CELL DISTRIBUTION WIDTH 14.6 % (11.5-14.5); WHITE BLOOD COUNT 11.9 K/uL (4.8-10.8)
[2018-06-18 07:25] LABS: T3 1.31 nmol/L (1.49-2.60)
[2018-06-18] MEDS: Enoxaparin 40 mg Syringe SC SCH (09:11)
[2018-06-18 12:42] VITALS: BP 121/69; PULSE 62; RESP 20; TEMP 97.9
--- NOTE | 2018-06-18 13:59 | CP.PCM.DIS ---
Provider - Provider Date of Admission: 06/16/18 11:04 Attending physician: Surinder Horton MD Consults: 06/16/18 14:25 Infectious Disease Consult Routine Comment: Consulting Provider: Bharathi Padilla Consulting Physician: Bharathi Padilla Reason for Consult: SIRS, elevated lactate of 2.3 Time Spent in preparation of Discharge (in minutes): 25 Diagnosis - Discharge Diagnosis (1) Abdominal pain, vomiting, and diarrhea Status: Resolved (2) Sepsis Status: Resolved (3) SIRS (systemic inflammatory response syndrome) Status: Resolved (4) UTI (urinary tract infection) Status: Acute Hospital Course - Lab Results Lab Results: Micro Results 06/16/18 07:51 Blood Blood Culture - Preliminary NO GROWTH AFTER 48 HOURS 06/16/18 04:30 Urine Urine Culture - Final Escherichia Coli 06/16/18 06:15 Blood Blood Culture - Preliminary NO GROWTH AFTER 48 HOURS Most Recent Lab Values WBC 11.9 K/uL (4.8-10.8) H 06/18/18 04:30 RBC 4.68 Mil/uL (3.80-5.20) 06/18/18 04:30 Hgb 12.3 g/dL (12.0-16.0) 06/18/18 04:30 Hct 39.1 % (34.0-47.0) 06/18/18 04:30 MCV 83.6 fl (81.0-99.0) 06/18/18 04:30 MCH 26.2 pg (27.0-31.0) L 06/18/18 04:30 MCHC 31.4 g/dL (33.0-37.0) L 06/18/18 04:30 RDW 14.6 % (11.5-14.5) H 06/18/18 04:30 Plt Count 229 K/uL (130-400) 06/18/18 04:30 MPV 9.7 fl (7.2-11.7) 06/17/18 04:10 Neut % (Auto) 49.7 % (50.0-75.0) L 06/17/18 04:10 Lymph % (Auto) 38.7 % (20.0-40.0) 06/17/18 04:10 [place] % (Auto) 5.7 % (0.0-10.0) 06/17/18 04:10 Eos % (Auto) 5.7 % (0.0-4.0) H 06/17/18 04:10 Baso % (Auto) 0.2 % (0.0-2.0) 06/17/18 04:10 Neut # (Auto) 5.2 K/uL (1.8-7.0) 06/17/18 04:10 Lymph # (Auto) 4.1 K/uL (1.0-4.3) 06/17/18 04:10 [place] # (Auto) 0.6 K/uL (0.0-0.8) 06/17/18 04:10 Eos # (Auto) 0.6 K/uL (0.0-0.7) 06/17/18 04:10 Baso # (Auto) 0.0 K/uL (0.0-0.2) 06/17/18 04:10 Neutrophils % (Manual) 75 % (42-75) 06/16/18 02:40 Band Neutrophils % 11 % (0-2) H* 06/16/18 02:40 Lymphocytes % (Manual) 9 % (20-50) L 06/16/18 02:40 Monocytes % (Manual) 3 % (0-10) 06/16/18 02:40 Eosinophils % (Manual) 1 % (0-7) 06/16/18 02:40 Metamyelocytes % 1 % (0-0) H 06/16/18 02:40 Platelet Estimate Normal (NORMAL) 06/16/18 02:40 pO2 56 mm/Hg (30-55) H 06/16/18 06:34 VBG pH 7.39 (7.32-7.43) 06/16/18 06:34 VBG pCO2 38 mmHg (40-60) L 06/16/18 06:34 VBG HCO3 23.4 mmol/L 06/16/18 06:34 VBG Total CO2 24.2 mmol/L (22-28) 06/16/18 06:34 VBG O2 Sat (Calc) 94.5 % (40-65) H 06/16/18 06:34 VBG Base Excess -1.7 mmol/L (0.0-2.0) L 06/16/18 06:34 VBG Potassium 3.5 mmol/L (3.6-5.2) L 06/16/18 06:34 Sodium 137.0 mmol/L (132-148) 06/16/18 06:34 Chloride 106.0 mmol/L (98-107) 06/16/18 06:34 Glucose 110 mg/dL (65-105) H 06/16/18 06:34 Lactate 2.3 mmol/L (0.7-2.1) H 06/16/18 06:34 FiO2 21.0 % 06/16/18 06:34 Sodium 139 mmol/l (132-148) 06/17/18 04:10 Potassium 4.1 MMOL/L (3.6-5.0) 06/17/18 04:10 Chloride 107 mmol/L (98-107) 06/17/18 04:10 Carbon Dioxide 25 mmol/L (22-30) 06/17/18 04:10 Anion Gap 11 (10-20) 06/17/18 04:10 BUN 12 mg/dl (7-17) 06/17/18 04:10 Creatinine 0.8 mg/dl (0.7-1.2) 06/17/18 04:10 Est GFR ( Amer) > 60 06/17/18 04:10 Est GFR (Non-Af Amer) > 60 06/17/18 04:10 Random Glucose 101 mg/dL (65-105) 06/17/18 04:10 Lactic Acid 1.0 MMOL/L (0.7-2.1) 06/16/18 14:35 Calcium 9.0 mg/dL (8.4-10.2) 06/17/18 04:10 Total Bilirubin 0.4 mg/dl (0.2-1.3) 06/17/18 04:10 AST 25 U/L (14-36) 06/17/18 04:10 ALT 24 U/L (9-52) 06/17/18 04:10 Alkaline Phosphatase 53 U/L (38-126) 06/17/18 04:10 Total Protein 6.5 G/DL (6.3-8.2) 06/17/18 04:10 Albumin 3.5 g/dL (3.5-5.0) D 06/17/18 04:10 Globulin 3.0 gm/dL (2.2-3.9) 06/17/18 04:10 Albumin/Globulin Ratio 1.2 (1.0-2.1) 06/17/18 04:10 Vitamin B12 278 pg/mL (239-931) 06/17/18 04:10 Free T4 1.14 ng/dL (0.78-2.19) 06/18/18 04:30 Total T3 1.31 nmol/L (1.49-2.60) L 06/18/18 04:30 TSH 3rd Generation 17.70 mIU/ML (0.46-4.68) H 06/18/18 04:30 Venous Blood Potassium 3.5 mmol/L (3.6-5.2) L 06/16/18 06:34 Urine Color Yellow (YELLOW) 06/16/18 04:30 Urine Clarity Cloudy (Clear) 06/16/18 04:30 Urine pH 5.0 (5.0-8.0) 06/16/18 04:30 Ur Specific [place] 1.031 (1.003-1.030) H 06/16/18 04:30 Urine Protein 30 mg/dL (NEGATIVE) 06/16/18 04:30 Urine Glucose (UA) Neg mg/dL (NEGATIVE) 06/16/18 04:30 Urine Ketones 20 mg/dL (NEGATIVE) 06/16/18 04:30 Urine Blood Negative (NEGATIVE) 06/16/18 04:30 Urine Nitrate Negative (NEGATIVE) 06/16/18 04:30 Urine Bilirubin Negative (NEGATIVE) 06/16/18 04:30 Urine Urobilinogen 0.2-1.0 mg/dL (0.2-1.0) 06/16/18 04:30 Ur Leukocyte Esterase Small [place]/uL (Negative) 06/16/18 04:30 Urine RBC (Auto) 1 /hpf (0-3) 06/16/18 04:30 Urine Microscopic WBC 5 /hpf (0-5) 06/16/18 04:30 Ur Squamous Epith Cells 5 /hpf (0-5) 06/16/18 04:30 Urine Bacteria Occ (<OCC) H 06/16/18 04:30 Influenza Typ A,B (EIA) Negative for flu a/b (NEGATIVE) 06/16/18 16:42 - Hospital Course Hospital Course: 22 year old female with PMHx right ovarian cyst presents to [facility] w/ complaints of sudden onset of multiple episodes (7-8 x) NBNB emesis and non-bloody watery diarrhea associated with diffuse abdominal cramps and chills since . In the ED, patient CBC shows WBC 26.5 w/ band neutrophil of 11. VBG shows lactate of 2.3. CT abdomen and pelvis, and TV US show right ovarian dermoid and nonspecific findings. Patient meets the criteria for SIRS and admitted for evaluation of potential sepsis. Patient received Zosyn 3.375 mg q6 hours while in the hospital. Patients wbc returned to baseline and had stable vitals with no fever. Preliminary blood cx after 48 hours is negative. Urine cx grew E coli b/w 50 to 100,000 CFU and organism is pansensitive. Today, patient reports she is feeling better. Denies any nausea, vomiting, abdominal pain, fever or chills. Patient is hemodynamically stable to discharge home with Keflex 500 mg every 8 hours for 7 days. Patient will also receive levothyroxine 25 mcg for hypothyroidism. Advised to follow up with Dr. Horton in 2-4 weeks. Discharge Exam - Head Exam Head Exam: ATRAUMATIC, NORMOCEPHALIC - Eye Exam Eye Exam: Normal appearance - ENT Exam ENT Exam: Mucous Membranes Moist - Respiratory Exam Respiratory Exam: Clear to PA & Lateral, NORMAL BREATHING PATTERN. absent: Wheezes, Respiratory Distress - Cardiovascular Exam Cardiovascular Exam: REGULAR RHYTHM, +S1, +S2 - GI/Abdominal Exam GI & Abdominal Exam: Normal Bowel Sounds, Soft. absent: Guarding, Rebound, Tenderness - Extremities Exam Extremities exam: normal inspection - Back Exam Back exam: absent: CVA tenderness (L), CVA tenderness (R) - Neurological Exam Neurological exam: Alert, Oriented x3 - Psychiatric Exam Psychiatric exam: Normal Affect, Normal Mood - Skin Skin Exam: Normal Color Discharge Plan - Discharge Medications Prescriptions: Cephalexin [Keflex] 500 mg PO Q8 #21 capsule Levothyroxine [Synthroid] 25 mcg PO DAILY@0630 #30 tab - Follow Up Plan Condition: GUARDED Disposition: HOME/ ROUTINE Instructions: Acute Abdomen (Belly Pain), Adult (DC), Nausea and Vomiting, Adult (DC), Urinary Tract Infection in Women (DC), Sepsis, Adult (DC) Additional Instructions: Please follow up with Dr. Horton in 2-4 weeks. Return to Emergency department if you develop any abdominal pain, nausea, vomiting, fever or chills. Take medications as directed. Referrals: Surinder Horton MD [Staff Provider] - Bharathi Padilla MD [Staff Provider] -
--- NOTE | 2018-06-18 15:08 | CP.PCM.PN ---
Subjective - Date & Time of Evaluation Date of Evaluation: 06/18/18 Time of Evaluation: 10:00 - Subjective Subjective: seen on rounds no nausea or vomuiting' refuses to stay for further iv rx blood cultures neg thus far Objective - Vital Signs/Intake and Output Vital Signs (last 24 hours): Temp Pulse Resp BP Pulse Ox 97.9 F 62 20 121/69 99 06/18/18 12:42 06/18/18 12:42 06/18/18 12:42 06/18/18 12:42 06/18/18 12:42 Intake and Output: 06/18/18 06/18/18 06:59 18:59 Intake Total 1500 Balance 1500 - Medications Medications: Current Medications Enoxaparin Sodium (Lovenox) 40 mg SC DAILY [facility]; Protocol Last Admin: 06/18/18 09:11 Dose: 40 mg Piperacillin Sod/Tazobactam (Sod 3.375 gm/ Sodium Chloride) 100 mls @ 100 mls/hr IVPB Q6 [facility]; Protocol Last Admin: 06/18/18 09:15 Dose: 100 mls/hr Levothyroxine Sodium (Synthroid) 25 mcg PO DAILY@0630 [facility] Ondansetron HCl (Zofran Inj) 4 mg IVP Q6 PRN PRN Reason: Nausea/Vomiting Pantoprazole Sodium (Protonix Inj) 40 mg IVP DAILY [facility] Last Admin: 06/18/18 09:11 Dose: 40 mg - Labs Labs: 06/18/18 04:30 06/17/18 04:10 - Constitutional Appears: Non-toxic, Chronically Ill - Head Exam Head Exam: NORMOCEPHALIC - Eye Exam Eye Exam: absent: Scleral icterus - ENT Exam ENT Exam: Mucous Membranes Dry - Neck Exam Neck Exam: absent: Lymphadenopathy - Respiratory Exam Respiratory Exam: Decreased Breath Sounds, Clear to Ausculation Bilateral - Cardiovascular Exam Cardiovascular Exam: REGULAR RHYTHM, +S1, +S2 - GI/Abdominal Exam GI & Abdominal Exam: Distended, Soft. absent: Tenderness - Rectal Exam Rectal Exam: Deferred - Exam Exam: NORMAL INSPECTION - Extremities Exam Extremities Exam: absent: Pedal Edema - Back Exam Back Exam: absent: CVA tenderness (L), CVA tenderness (R) - Neurological Exam Neurological Exam: Alert, Awake, Oriented x3 - Psychiatric Exam Psychiatric exam: Normal Mood - Skin Skin Exam: Dry Assessment and Plan (1) Sepsis Status: Resolved (2) UTI (urinary tract infection) Status: Acute - Assessment and Plan (Free Text) Assessment: d/c on PO rx follow up with PMD
[2018-06-19] MEDS ORDERED: Levothyroxine 25 MCG TAB PO SCH (06:30)
== END 2018-06-18 15:13 | disposition home or self-care (01) | DRG 901 ==
LOC: H.ER 00:27 → H.ERHOLD 11:04 → H.TEL 17:31
PROVIDERS: ADMIT Internal Medicine; ATTEND Internal Medicine
DX: A41.9 Sepsis, unspecified organism (principal); N39.0 Urinary tract infection, site not specified; E87.6 Hypokalemia; E86.0 Dehydration; E83.52 Hypercalcemia; E03.9 Hypothyroidism, unspecified; B96.20 Unspecified Escherichia coli [E. coli] as the cause of diseases classified elsewhere; F17.210 Nicotine dependence, cigarettes, uncomplicated